=== PATIENT | female | born 1965 | race Caucasian/White ===

== ENCOUNTER 2021-07-29 22:01 | Emergency (ER) | payer SELFPAY ==
[~2021-07-29] VITALS: Ht 167.6 cm; Wt 90.7 kg
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
--- NOTE | 2021-07-29 22:20 | NUR ---
Caroline wei in [facility] - 07/30/21 at 0615 by HORTENCIA FILEMON RADFORD [phone]
[2021-07-29] MEDS ORDERED: ACETAMINOPHEN 325 MG TABLET PO ONE (23:00)
[2021-07-29] MEDS ORDERED: LORAZEPAM INJ 2 MG/ML VIAL IM ONE (23:00)
[2021-07-29] MEDS ORDERED: ACETAMINOPHEN ES 500 MG TABLET ONE (23:04)
[2021-07-29] MEDS ORDERED: LORAZEPAM INJ 2 MG/ML VIAL ONE (23:04)
--- NOTE | 2021-07-30 06:16 | NUR ---
[facility]- [phone]. REPORT GIVEN TO ABHI FOR CONTINUATION OF CARE.
--- NOTE | 2021-07-30 07:25 | NUR ---
PATIENT WAITING FOR CAB FOR [employer]
[2021-07-30] MEDS ORDERED: ACETAMINOPHEN 325 MG TABLET ONE (07:41)
--- NOTE | 2021-07-30 07:43 | NUR ---
Patient refused Tylenol Obnoxious/verbally agressive and cussing. Walked out to waiting cab
[2021-07-30 07:44] VITALS: BP 112/60
[2021-07-30] MEDS ORDERED: ACETAMINOPHEN 325 MG TABLET PO ONE (08:00)
== END 2021-07-30 07:44 | disposition home or self-care (01) ==
LOC: ER 22:07
DX: R46.1 Bizarre personal appearance (principal); I10 Essential (primary) hypertension; Z60.2 Problems related to living alone
CPT/HCPCS: 96372; 99283; J2060